=== PATIENT | male | born 1940 | race Caucasian/White ===

== ENCOUNTER → 2019-08-27 | Outpatient (CLI) | payer MEDICARE ==
[~2019-08-27] MED LIST: ACET325 PO; ASCO500 PO; Antivert25 MG PO; DIAZ5 PO; GLUCHON PO; HYDACE5 PO; MULVITMIND PO; VANC125 PO; [UNRECOGNIZED DRUG - MIXTURE] PO
[2019-08-29 16:06] LABS: M-SPIKE, % Not Observed % (Not Observed); PROTEIN,TOTAL,URINE <4.0 mg/dL (Not Estab.)
== END | disposition home or self-care (01) ==
LOC: LAB 04:00 → LAB SHORT 04:00 → LAB FUT 08-24 14:35
PROVIDERS: Internal Medicine
DX: Z00.01 Encounter for general adult medical examination with abnormal findings (principal)
CPT/HCPCS: 81050; 84166; 86335

== ENCOUNTER 2019-10-16 12:00 | Day surgery (SDC) | payer MEDICARE ==
[~2019-10-16] VITALS: Ht 182.9 cm; Wt 111.0 kg
[~2019-10-16 12:00] MED LIST changes: +SENIOR TABS1 EACH
== END 2019-10-16 15:15 | disposition home or self-care (01) ==
LOC: ORSCSDS 12:00
PROVIDERS: Internal Medicine Gastroenterology
PROC: 0DBK8ZX Excision of Ascending Colon, Via Natural or Artificial Opening Endoscopic, Diagnostic (ICD-10-PCS; principal; 2019-10-16 13:30)
DX: Z12.11 Encounter for screening for malignant neoplasm of colon (principal); D12.2 Benign neoplasm of ascending colon; Z86.010 Personal history of colon polyps; K57.30 Diverticulosis of large intestine without perforation or abscess without bleeding; K64.8 Other hemorrhoids; F17.220 Nicotine dependence, chewing tobacco, uncomplicated
CPT/HCPCS: 88305; J2704; J7120

== ENCOUNTER 2020-11-13 06:46 | Day surgery (SDC) | payer MEDICARE ==
[~2020-11-13] VITALS: Ht 185 cm; Wt 118.8 kg
[~2020-11-13 06:46] MED LIST changes: +CENTRUM SILVER1 EAC2 PO
--- NOTE | 2020-11-13 07:49 | NUR ---
Ambulatory in Day Surgery History, Chart, Medications and Allergies reviewed before start of procedure.Patient confirms NPO status and agrees with scheduled surgery. Lungs clear T/O to Auscultation.
--- NOTE | 2020-11-13 08:14 | NUR ---
11/13/20 0814 Elio Israel History, Chart, Medications and Allergies reviewed before start of procedure.MONITOR INTACT WITH CONTINUOUS PULSE OXIMETRY AND INTERMITTENT BP.3-LEAD EKG REVIEWED WITH PHYSICIAN PRIOR TO START OF PROCEDURE.O2 VIA N/C INTACT THROUGHOUT SEDATION/PROCEDURE. PATIENT DETERMINED TO BE ASA APPROPRIATE FOR PROPOFOL SEDATION PRIOR TO START OF PROCEDURE BY DR. CR.
--- NOTE | 2020-11-13 09:05 | NUR ---
Patient up to Ambulate independently. Gait steady. Discharge instructions reviewed with patient. Patient verbalizes understanding. Copy given to patient to take home. Discharged via wheelchair to private car for ride home.
== END 2020-11-13 23:21 | disposition home or self-care (01) ==
LOC: ORSCMMR 06:46 → ORSCSDS 06:46
PROVIDERS: Internal Medicine Gastroenterology
PROC: 0DB78ZX Excision of Stomach, Pylorus, Via Natural or Artificial Opening Endoscopic, Diagnostic (ICD-10-PCS; principal; 2020-11-13 08:00)
PROC: 0D758ZZ Dilation of Esophagus, Via Natural or Artificial Opening Endoscopic (ICD-10-PCS; principal; 2020-11-13 08:00)
DX: R93.3 Abnormal findings on diagnostic imaging of other parts of digestive tract (principal); K31.7 Polyp of stomach and duodenum; K22.2 Esophageal obstruction; K44.9 Diaphragmatic hernia without obstruction or gangrene; Z79.82 Long term (current) use of aspirin; Z79.899 Other long term (current) drug therapy; Z87.891 Personal history of nicotine dependence
CPT/HCPCS: 88305; 88341; 88342; C1726; J2704; J7120

== ENCOUNTER 2021-01-20 05:37 | Day surgery (SDC) | payer MEDICARE ==
[~2021-01-20] VITALS: Ht 182.9 cm; Wt 118.0 kg
[~2021-01-20 05:37] MED LIST changes: +ALPR1 PO; +ATOR40TA PO; +Aspir 8181 MG PO
[2021-01-20] MEDS ORDERED: CLOP75 PO (10:59)
--- NOTE | 2021-01-20 11:08 | NUR ---
0930 APPROX pt arrived in bed from [facility]. Right radial site with intact Distally placed TR band, and white immobilizer board in place. Scant amount of blood noted under TR band without any active bleeding, hematoma or bruising. Jourdan dsg proximal and adjacent to the TR band along the radial aspect of right forearm. 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 Capillary refill of right hand fingers 4 seconds and they are darker red than the left hand, which has pink fingers. spo2 measured for vital signs taken on the 2nd digit of the right hand. Pt denies dyspnea, chest pain/discomfort, and states that he is hungry.
--- NOTE | 2021-01-20 11:14 | NUR ---
At this time the patient has eaten a full breakfast, and tolerated it well. Pleasantly conversant, without any complaints of pain or discomfort. Right radial site is WNL with each vital sign check. Pt continues to follow instructions on keeping the right wrist immobilized, and he is wearing the white immoblizer board on the right wrist. IV medications infusing as ordered. Monika was here briefly to help him with his breakfast, and she has gone home to return around 1330 for anticipated discharge home around that time.
--- NOTE | 2021-01-20 13:53 | NUR ---
Aggrastat stopped at 1320. TR band deflation also completed at that time. Small amount of oozing has been noted over the past hour, no active bleeding. Removed cloth dot (previously noted incorrectly as Jourdan dressing) proximal and adjacent to the TR band was removed; this has been in place since arrival from the [facility] and underneath was noted to have some oozing from a puncture site which was not under the TR band, and also a hematoma. Hand was elevated and pressure applied for [address] Scanlon called as there was also noted to be an area from the mid forearm to just above the elbow which was swollen but not discolored. Area was firm to the touch, and pt stated that he had felt discomfort there during the procedure, which he thought was from his arm being strapped down during the angiogram. Dr Scanlon arrived and blood pressure cuff was applied to the upper forearm, at 130 mmHg. Pt's blood pressure systolic was 137 mmHg. Pressure in the cuff spontaneously deflated to 120mmHG and was kept on for [address]'s orders. Deflated for 2 minutes, and manual pressure applied again to the area just proximal to the TR band as it appeared to have again some swelling. After a few minutes it was soft again. Oozing from TR band increased so reinflated with 2 cc air until it stopped. Cuff on the upper forearm was reinflated to 120 mmHg, for additional 15 minutes per orders. Pt's blood pressure 152/76. The pt has chronic numbness in both of his hands, which is unchanged. spo2 measured on the right hand is 92% during the pressure application on the forearm. Pt is not in distress, but does state mild discomfort with the pressure application.
== END 2021-01-20 16:17 | disposition home or self-care (01) ==
LOC: MHTC 05:37 → PCU 08:51 → MHTC 16:17
DX: I25.10 Atherosclerotic heart disease of native coronary artery without angina pectoris (principal); I11.0 Hypertensive heart disease with heart failure; I50.9 Heart failure, unspecified; E78.5 Hyperlipidemia, unspecified; F17.220 Nicotine dependence, chewing tobacco, uncomplicated; I77.819 Aortic ectasia, unspecified site; I87.2 Venous insufficiency (chronic) (peripheral)
CPT/HCPCS: 85347; 93458; 99152; 99153; A9270; C1725; C1769; C1874; C1887; C1894; C9600; C9601; J1644; J2250; J3010; J3246; J7030; J7050; Q9967

== ENCOUNTER 2021-01-22 11:09 | Emergency (ER) | payer MEDICARE ==
[~2021-01-22] VITALS: Ht 182.9 cm; Wt 117.9 kg
[~2021-01-22 11:09] MED LIST changes: +CLOP75 PO
== END 2021-01-22 18:10 | disposition home or self-care (01) ==
LOC: ER 11:09
DX: I77.0 Arteriovenous fistula, acquired (principal); Z79.82 Long term (current) use of aspirin; Z79.899 Other long term (current) drug therapy; Z87.891 Personal history of nicotine dependence
CPT/HCPCS: 93931; 99284-25

== ENCOUNTER 2022-05-03 14:01 | Emergency (ER) | payer OTHER, MEDICARE ==
[~2022-05-03] VITALS: Ht 182.9 cm; Wt 122.5 kg
[2022-05-03 15:09] LABS: BASOPHILS ABSOLUTE AUTO 0.02 K/mm3 (0.00-0.23); BASOPHILS PERCENT AUTO 0 % (0-2); EOSINOPHILS ABSOLUTE AUTO 0.11 K/mm3 (0.00-0.68); EOSINOPHILS PERCENT AUTO 1 % (0-6); Hematocrit 39.1 % (37.0-53.0); Hemoglobin 13.2 g/dL (13.5-17.5); IMMATURE GRAN ABSOLUTE AUTO 0.02 K/mm3 (0.00-0.10); IMMATURE GRAN PERCENT AUTO 0 % (0-1); LYMPHOCYTES ABSOLUTE AUTO 1.66 K/mm3 (0.84-5.20); LYMPHOCYTES PERCENT AUTO 21 % (21-46); MONOCYTES ABSOLUTE AUTO 1.34 K/mm3 (0.16-1.47); MONOCYTES PERCENT AUTO 17 % (4-13); Mean Corpuscular HGB 31.7 pg (26.0-34.0); Mean Corpuscular HGB Conc 33.8 g/dL (31.5-36.5); Mean Corpuscular Volume 94 fL (80-100); NEUTROPHILS ABSOLUTE AUTO 4.68 K/mm3 (1.96-9.15); NEUTROPHILS PERCENT AUTO 60 % (41-73); Platelet Count 261 K/mm3 (150-400); RDW Coefficient Variation 12.8 % (11.7-14.2); Red Blood Cell Count 4.16 M/mm3 (4.30-5.90); White Blood Cell Count 7.83 K/mm3 (4.00-11.30)
[2022-05-03 15:24] LABS: Albumin, Blood 3.5 g/dL (3.4-5.0); Bilirubin, Total 1.3 mg/dL (0.1-1.0); Bun/Creatinine Ratio 16.7 (12.0-20.0); Calcium, Blood 8.7 mg/dL (8.5-10.1); Creatinine, Blood 0.96 mg/dL (0.60-1.20); Globulin, Blood 3.5 g/dL (2.2-4.0); Potassium, Blood 4.2 mmol/L (3.5-5.5)
== END 2022-05-03 17:12 | disposition home or self-care (01) ==
LOC: ER 14:01
PROVIDERS: Physician Assistant
DX: S80.12XA Contusion of left lower leg, initial encounter (principal); V49.40XA Driver injured in collision with unspecified motor vehicles in traffic accident, initial encounter; Z91.048 Other nonmedicinal substance allergy status; Z79.899 Other long term (current) drug therapy; Z87.891 Personal history of nicotine dependence
CPT/HCPCS: 36415; 80053; 85025; 93971